=== PATIENT | female | born 1975 | race Caucasian/White ===

== ENCOUNTER → 2016-08-01 | Outpatient (CLI) | payer BC ==
[~2016-08-01] MED LIST: NO HOME MEDICATIONS
== END ==
LOC: MC.RAD 08:00
DX: Z12.31 Encounter for screening mammogram for malignant neoplasm of breast (principal)

== ENCOUNTER 2018-04-15 00:09 | Emergency (ER) | payer BC ==
[~2018-04-15] VITALS: Ht 160 cm; Wt 51.3 kg
[2018-04-15 00:11] VITALS: BP 112/74; TEMP 97.5
[2018-04-15] MEDS ORDERED: CEPHALEXIN500 M1 PO (01:36)
[2018-04-15 01:53] VITALS: PULSE 88
== END 2018-04-15 01:56 | disposition home or self-care (01) ==
LOC: COL.ER 00:09
DX: S61.412A Laceration without foreign body of left hand, initial encounter (principal); Z23 Encounter for immunization; Z88.1 Allergy status to other antibiotic agents; W26.0XXA Contact with knife, initial encounter; Y92.009 Unspecified place in unspecified non-institutional (private) residence as the place of occurrence of the external cause

== ENCOUNTER → 2018-08-17 | Outpatient (CLI) | payer BC ==
[~2018-08-17] MED LIST changes: +CEPHALEXIN500 M1 PO
== END ==
LOC: MC.RAD 08-07 09:45
DX: Z12.31 Encounter for screening mammogram for malignant neoplasm of breast (principal)

== ENCOUNTER 2020-11-08 00:12 | Emergency (ER) | payer BC ==
[~2020-11-08] VITALS: Ht 160 cm; Wt 59.1 kg
[2020-11-08 02:14] VITALS: BP 106/71; PULSE 79; TEMP 98.1
[2020-11-08] MEDS ORDERED: PERCOCET 325 MG1 TA2 PO (03:17)
[2020-11-08] MEDS ORDERED: CRUTCHES MC (03:52)
== END 2020-11-08 04:00 | disposition home or self-care (01) ==
LOC: COL.ER 00:12
DX: S82.891A Other fracture of right lower leg, initial encounter for closed fracture (principal); W10.8XXA Fall (on) (from) other stairs and steps, initial encounter

== ENCOUNTER → 2020-12-17 | Outpatient (CLI) | payer BC ==
[~2020-12-17] MED LIST changes: +CRUTCHES MC; +PERCOCET 325 MG1 TA2 PO
== END ==
LOC: COL.VAS 08:51
DX: S82.61XD Displaced fracture of lateral malleolus of right fibula, subsequent encounter for closed fracture with routine healing (principal)

== ENCOUNTER → 2024-01-30 | Outpatient (CLI) | payer OTHER | LOC: MC.RAD 09:32 | DX: Z12.31 Encounter for screening mammogram for malignant neoplasm of breast (principal) ==